=== PATIENT | female | born 1990 | race Caucasian/White ===

== ENCOUNTER 2018-07-22 17:35 | Emergency (ER) | payer MEDICAID ==
[2018-07-22 20:33] LABS: ADD MAN DIFF? NO
[2018-07-22 20:35] LABS: BASOPHILS % 0.1 % (0.0-2.0); EOSINOPHILS # 0.1 10^3/ul (0.0-0.5); HEMATOCRIT 36.3 % (37.0-47.0); HEMOGLOBIN 11.9 g/dl (12.0-16.0); LYMPHOCYTES # 1.4 10^3/ul (0.8-2.9); LYMPHOCYTES % 14.8 % (15.0-51.0); MEAN CORPUSCULAR HEMOGLOBIN 29.3 pg (29.0-33.0); MEAN CORPUSCULAR HGB CONC 32.8 g/dl (32.0-37.0); MEAN CORPUSCULAR VOLUME 89.4 fl (82.0-101.0); MONOCYTE # 0.5 10^3/ul (0.3-0.9); NEUTROPHIL # 7.5 10^3/ul (1.6-7.5); NEUTROPHILS % 78.8 % (39.0-77.0); PLATELET COUNT 272 10^3/UL (140-415); RED BLOOD COUNT 4.06 10^6/ul (4.20-5.40); RED CELL DISTRIBUTION WIDTH 12.6 % (11.5-14.5)
[2018-07-22 20:35] LABS: WHITE BLOOD COUNT 9.5 10^3/ul (4.8-10.8)
[2018-07-22 20:41] LABS: ADD UMIC YES; UR ASCORBIC ACID NEGATIVE (NEGATIVE); UR BILIRUBIN (Dip) NEGATIVE (NEGATIVE); UR BLOOD (Dip) 2+ mg/dL (NEGATIVE); UR CLARITY CLEAR (CLEAR); UR COLOR YELLOW (YELLOW); UR GLUCOSE (Dip) NEGATIVE (NEGATIVE); UR KETONES (Dip) NEGATIVE (NEGATIVE); UR LEUKOCYTE ESTERASE (Dip) NEGATIVE Leu/ul (NEGATIVE); UR NITRITE (Dip) NEGATIVE (NEGATIVE); UR RBC 0 /HPF (0-5); UR SPECIFIC GRAVITY (Dip) 1.012 (1.003-1.030); UR SQUAMOUS EPITHELIAL CELL FEW /HPF (FEW); UR TOTAL PROTEIN (Dip) NEGATIVE (NEGATIVE); UR UROBILINOGEN (Dip) 1+ mg/dL (NEGATIVE); UR WBC 4 /HPF (0-5)
== END 2018-07-22 21:33 | disposition home or self-care (01) ==
LOC: FTE 21:33
DX: O20.0 Threatened abortion (principal); R10.2 Pelvic and perineal pain; Z3A.14 14 weeks gestation of pregnancy
CPT/HCPCS: 36415; 76805; 81001; 84702; 85025; 86900; 86901; 99284-25

== ENCOUNTER 2019-01-18 17:53 | Inpatient (IN) | payer MEDICAID ==
[2019-01-18] MEDS ORDERED: LACTATED RINGER'S 1,000 ML IV (18:05)
[2019-01-18] MEDS ORDERED: AMPICILLIN 2 GM/NS (PMX) 100 ML (18:24)
[2019-01-18] MEDS ORDERED: METHYLERGONOVINE 0.2 MG INJ IM ×2 (18:30→21:30)
[2019-01-18] MEDS ORDERED: OXYTOCIN 30 UNITS/LR 500 ML IV ×2 (18:30→21:30)
[2019-01-18] MEDS ORDERED: IBUPROFEN 600 MG TAB PO (18:30)
[2019-01-18] MEDS ORDERED: LIDOCAINE 1% (MPF) 30 ML INJ INJ (18:30)
[2019-01-18] MEDS ORDERED: MISOPROSTOL 200 MCG TAB PR ×2 (18:30→21:30)
[2019-01-18] MEDS ORDERED: BUTORPHANOL 2 MG INJ IV ×2 (18:30)
[2019-01-18] MEDS ORDERED: CARBOPROST 250 MCG INJ IM ×2 (18:30→21:30)
[2019-01-18] MEDS: ACETAMINOPHEN 500 MG TAB PO (18:43)
[2019-01-18] MEDS: KETOROLAC 30 MG INJ IV (18:43)
[2019-01-18] MEDS: AMPICILLIN 2 GM/NS (PMX) 100 ML IV (18:58)
[2019-01-18] MEDS: OXYTOCIN 30 UNITS/LR 500 ML IV ×2 (18:59→19:01)
[2019-01-18] MEDS ORDERED: HYDROCODONE/APAP (5/325) TAB PO (21:30)
[2019-01-18] MEDS ORDERED: DIBUCAINE 1% 30 GM OINT TOP (21:30)
[2019-01-18] MEDS ORDERED: ZOLPIDEM 5 MG TAB PO (21:30)
[2019-01-18] MEDS ORDERED: AMPICILLIN 1 GM/NS (PMX) 50 ML IV (22:30)
[2019-01-18] MEDS: LACTATED RINGER'S 1,000 ML IV* (22:44)
[2019-01-19] MEDS: LANOLIN HPA 1 PKT TOP (00:08)
[2019-01-19] MEDS: IBUPROFEN 600 MG TAB PO ×4 (00:08→18:11)
[2019-01-19] MEDS: BENZOCAINE 20% 56 ML SPRAY TOP (00:08)
[2019-01-19] MEDS: WITCH HAZEL/GLYCERIN PAD PR (00:08)
[2019-01-19] MEDS: LACTATED RINGER'S 1,000 ML IV* ×3 (05:08→21:08)
[2019-01-19] MEDS: SENNA/DOCUSATE NA (8.6MG/50MG) TAB PO ×2 (08:25→21:31)
[2019-01-19] MEDS: MAGNESIUM HYDROXIDE 30ML CUP PO ×2 (08:25→21:31)
[2019-01-20] MEDS: IBUPROFEN 600 MG TAB PO ×4 (00:17→17:58)
[2019-01-20] MEDS: DIPHTH/TET/ACEL PERTUSS (ADULT) 0.5 ML VIAL IM* (07:30)
[2019-01-20] MEDS: MEASLES,MUMPS,RUBELLA VACCINE INJ SC* (07:31)
[2019-01-20] MEDS: SENNA/DOCUSATE NA (8.6MG/50MG) TAB PO (09:41)
[2019-01-20] MEDS: MAGNESIUM HYDROXIDE 30ML CUP PO (09:41)
[2019-01-20] MEDS: LANOLIN HPA 1 PKT TOP (09:41)
[2019-01-20] MEDS: VARICELLA VACCINE LIVE/PF 1,350 UNIT/0.5 ML ML SC* (09:50)
== END 2019-01-20 19:20 | disposition home or self-care (01) | DRG 807 ==
LOC: OBT 17:53 → L-D 17:54 → OBT 18:00 → L-D 18:00 → PP1 20:27
PROC: 10E0XZZ Delivery of Products of Conception, External Approach (ICD-10-PCS; principal; 2019-01-18)
PROC: 3E033VJ Introduction of Other Hormone into Peripheral Vein, Percutaneous Approach (ICD-10-PCS; 2019-01-18)
DX: O65.5 Obstructed labor due to abnormality of maternal pelvic organs (principal); Z37.0 Single live birth; O34.211 Maternal care for low transverse scar from previous cesarean delivery; Z3A.39 39 weeks gestation of pregnancy
CPT/HCPCS: 85025; 85610; 85730; 86592; 86850; 86900; 86901; 87340; 90716